=== PATIENT | male | born 1990 | race Caucasian/White ===

== ENCOUNTER 2016-09-28 16:47 | Emergency (ER) | payer OTHER ==
[2016-09-28 16:58] VITALS: BP 159/96; PULSE 106; TEMP 98.8; BMI 31.1
[2016-09-28] MEDS ORDERED: LIDOCAINE HCL 1%, 10 MG/ML (20ML VIAL) ONE (17:49)
[2016-09-28] MEDS ORDERED: OXYCODONE/APAP 5/325MG COMBO TABLET ONE (17:56)
[2016-09-28] MEDS ORDERED: DIPHTH,PERTUSS(ACELL),TET 0.5 ML DISP.SYRIN IM ONE (19:21)
--- NOTE | 2016-09-28 19:28 | PDOC ---
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 Superficial laceration to right thigh, pulling injury to left shoulder. History of rotator cuff surgery to same. Denies any head injury, denies any other complaint. No back pain or neck pain. REVIEW OF SYSTEMS: RESPIRATORY: No cough, wheezing, or hemoptysis. MUSCULOSKELETAL: Pain to left shoulder with range of motion, good range of motion to bilateral hands SKIN : No erythema, no bruising, no deformity. Flap laceration to left palm, linear laceration to right hand, superficial abrasion to right upper thigh NEUROLOGICAL: Denies any numbness or tingling. No neurosensory deficits PHYSICAL EXAM: GENERAL: The patient is awake, alert, and fully oriented, in no acute distress. HEAD: Normal with no signs of trauma. EXTREMITIES: Good range of motion to all 4 extremities, pain with range of motion to left shoulder with abduction, good range of motion to left hand with flap laceration measuring approximately 5 cm in length, no foreign body no ligament or tendon involvement. There is a 4 cm laceration to palm of right hand good range of motion to hand and fingers, good cap refill, no foreign body. Superficial abrasion measuring approximately 2 cm in length to right upper thigh. SKIN: Warm, Dry, normal turgor, no erythema, no edema no bruising. 09/28/16 19:56 Past History - Past Medical History Allergies/Adverse Reactions: Allergies Allergy/AdvReac Type Severity Reaction Status Date / Time No Known Allergies Allergy Verified 09/28/16 16:58 Home Medications: Ambulatory Orders Cephalexin [Keflex] 500 mg PO TID #15 capsule 09/28/16 Oxycodone HCl/Acetaminophen [Percocet 5-325 mg Tablet] 1 - 2 tab PO Q4H #36 tablet MDD 10 09/28/16 Other medical history: NONE - Immunization History Immunization Up to Date: Yes - Psycho/Social/Smoking Cessation Hx Anxiety: No Suicidal Ideation: No Smoking History: Never smoked Hx Alcohol Use: Yes (SOCIAL) Drug/Substance Use Hx: No Substance Use Type: None *Physical Exam - Vital Signs Last Vital Signs Temp Pulse Resp BP Pulse Ox 98.8 F 106 H 20 159/96 97 09/28/16 16:54 09/28/16 16:54 09/28/16 16:54 09/28/16 16:54 09/28/16 16:54 Procedures - Laceration/Wound Repair Hand Wound Length: 12.6 to 20 cm (combined) Wound's Depth, Shape: linear, flap Irrigated w/ Saline: Yes Betadine Prep: Yes Anesthesia: 1% Lidocaine Amount of Anesthetic (ccs): 15 Wound Debrided: minimal Wound Repaired With: Sutures Suture Size/Type: 5:0 Layer Closure: No Deep Layer Suture Size/Type: 5:0 Progress: 09/28/16 19:28 2 separate lacerations, flap laceration to left hand, linear laceration to right hand. Left hand required 12 single interrupted sutures with 5.0 P 13 Right hand with 10 interrupted sutures 5.0 P 13. Bilateral hands prepped sterilely with normal saline and Betadine, washed with high pressure irrigation. Anesthetized using 15 mL's of 1% lidocaine. Suturing performed under sterile technique. Xeroform and bacitracin dressings applied to bilateral hands. Tetanus given. X-ray of left hand to rule out foreign body and x-ray of left shoulder ordered ED Treatment Course - RADIOLOGY Radiology Studies Ordered: Category Date Time Status HAND- LEFT [RAD] Stat Radiology 09/28/16 19:20 Ordered SHOULDER-LEFT [RAD] Stat Radiology 09/28/16 19:20 Ordered Medical Decision Making - Medical Decision Making 09/28/16 19:31 A/P: See procedure note Tetanus ordered X-ray to left shoulder and left hand Percocet One tablet by mouth Awaiting x-ray reading 09/28/16 19:57 Second Percocet ordered I am signing this patient out to my colleague: [MARIN Brandt] In brief, this patient is being seen in the ED for a chief complaint of: [ Bilateral hand lacerations, right thigh laceration and left shoulder injury] I have completed the initial assessment interview note and have ordered: [X-rays , Percocet] Pending results are: [X-rays] Plan for disposition is as follows: [Pending] *DC/Admit/Observation/Transfer Diagnosis at time of Disposition: Laceration of hand, right Laceration of hand, left Qualifiers: Encounter type: initial encounter Foreign body presence: without foreign body Qualified Code(s): S61.412A - Laceration without foreign body of left hand, initial encounter Leg laceration Qualifiers: Encounter type: initial encounter Laterality: right Qualified Code(s): S81.811A - Laceration without foreign body, right lower leg, initial encounter Shoulder injury Qualifiers: Encounter type: initial encounter Laterality: left Qualified Code(s): S49.92XA - Unspecified injury of left shoulder and upper arm, initial encounter - Discharge Dispostion Disposition: HOME Condition at time of disposition: Good Admit: No - Prescriptions Prescriptions: Cephalexin [Keflex] 500 mg PO TID #15 capsule Oxycodone HCl/Acetaminophen [Percocet 5-325 mg Tablet] 1 - 2 tab PO Q4H #36 tablet MDD 10 - Patient Instructions Printed Discharge Instructions: DI for Laceration Repair Additional Instructions: You have received sutures to bilateral hands Keep area clean dry and intact Keep dressing on until tomorrow If any increased bleeding through the dressing return immediately to emergency department Keep area clean dry and intact bacitracin x3 days, then let it dry out Please return in 10 days for suture removal. 10/09/16 Please return immediately to emergency department with any increased redness, swelling, signs of infection Must return after sutures are removed to occupational medicine for clearance to return to work
== END 2016-09-28 20:55 | disposition home or self-care (01) ==
LOC: JERFT 16:47
PROC: 3E0234Z Introduction of Serum, Toxoid and Vaccine into Muscle, Percutaneous Approach (ICD-10-PCS; principal; 2016-09-28)
PROC: 0JQK0ZZ Repair Left Hand Subcutaneous Tissue and Fascia, Open Approach (ICD-10-PCS; 2016-09-28)
PROC: 0JQJ0ZZ Repair Right Hand Subcutaneous Tissue and Fascia, Open Approach (ICD-10-PCS; 2016-09-28)
DX: S61.411A Laceration without foreign body of right hand, initial encounter (principal); S61.412A Laceration without foreign body of left hand, initial encounter; S81.811A Laceration without foreign body, right lower leg, initial encounter; S49.82XA Other specified injuries of left shoulder and upper arm, initial encounter; Y35.491A Legal intervention involving other sharp objects, law enforcement official injured, initial encounter; Y93.39 Activity, other involving climbing, rappelling and jumping off; Y92.89 Other specified places as the place of occurrence of the external cause; Y99.0 Civilian activity done for income or pay
CPT/HCPCS: 73030-TC-LT; 73130-TC-LT; 90715; 99281-25

== ENCOUNTER 2016-10-09 11:47 | Emergency (ER) | payer OTHER ==
[2016-10-09 12:05] VITALS: BP 145/68; PULSE 74; TEMP 98.2; BMI 31.1
--- NOTE | 2016-10-09 12:45 | PDOC ---
Suture Removal/Wound Check HPI - History of Present Illness Chief Complaint: Suture/Staple Removal(Here) Stated Complaint: STAPLE/SUTURE REMOVAL Time Seen by Provider: 10/09/16 12:08 History Source: Yes: Patient Exam Limitations: Yes: No Limitations Treated at: [facility] Date of Last ED visit: 09/28/16 - Previous ED Treatment Type of procedure performed on last visit: Yes: Laceration Repair Tetanus Immunization: Yes: Up to Date Antibiotics Prescribed: Yes (Keflex) - Onset of Previous Treatment Date of Occurence: 09/28/16 Past History - Past Medical History Allergies/Adverse Reactions: Allergies No Known Allergies Allergy (Verified 10/09/16 12:04) Home Medications: Ambulatory Orders Cephalexin [Keflex] 500 mg PO TID #15 capsule 09/28/16 Oxycodone HCl/Acetaminophen [Percocet 5-325 mg Tablet] 1 - 2 tab PO Q4H #36 tablet MDD 10 09/28/16 General: Yes: no pertinent history Surgical History: Yes: No Surgical History Psych History: Yes: No Pertinent Psych Hx. - Immunization History Immunizations Up to Date: Yes Tetanus Status: Less than 5 years - Social History Smoking Status: Never smoked Suture Removal/Wound Check PE - Physical Exam Laceration/Wound Check Symptoms: reports: Pain Comments: 10/09/16 12:46 Left palm, mild wound dehiscence, but superficial. Wound otherwise healed well. There is no erythema edema or secondary signs of infection. Current Severity Level: None Maximum Severity Level: None Pain Localization: None *Review of Systems - Review of Systems Constitutional: No: Symptoms Reported Respiratory: No: Symptoms reported Integumentary: Yes: Other (Pain to the left hand) Neurological: No: Symptoms reported, Paresthesia, Tingling, Tremors Medical Decision Making - Medical Decision Making 10/09/16 12:47 A/P : 23 sutures were removed without difficulty, there is mild wound dehiscence to the left hand which is superficial there is no drainage. No secondary signs of infection. Patient with good range of motion Dermabond placed superficially just for protective reasons to the right hand. Patient to follow-up with occupational medicine for return to work. *DC/Admit/Observation/Transfer Diagnosis at time of Disposition: Visit for suture removal - Discharge Dispostion Disposition: HOME Condition at time of disposition: Good Admit: No - Patient Instructions Printed Discharge Instructions: DI for Suture Removal Additional Instructions: Keep area clean for the next day, then perform active ROM to increase mobility to hand. All up with occupational medicine for return to work, follow-up with orthopedics for shoulder pain.
== END 2016-10-09 12:52 | disposition home or self-care (01) ==
LOC: JERFT 11:47
DX: Z48.02 Encounter for removal of sutures (principal)
CPT/HCPCS: 99281-25

== ENCOUNTER 2022-01-22 14:36 | Emergency (ER) | payer OTHER ==
[2022-01-22 15:02] VITALS: BP 122/78; PULSE 75; RESP 16; TEMP 98.3; BMI 31.9
== END 2022-01-22 15:28 | disposition home or self-care (01) ==
LOC: FER 14:36
DX: M54.50 Low back pain, unspecified (principal)
CPT/HCPCS: 99281-25

== ENCOUNTER 2024-09-04 07:41 | Emergency (ER) | payer OTHER, BC ==
[2024-09-04 08:06] VITALS: BP 131/72; PULSE 76; RESP 20; TEMP 98.2; BMI 31.9
[2024-09-04] MEDS: HIV POST EXPOSURE PROPHYLAXIS KIT PO ONE (08:42)
[2024-09-04 12:16] LABS: HCV DIAGNOSTIC IN-HOUSE W/RFLX NON-REACTIVE (NONREACTIVE)
[2024-09-04 12:17] LABS: HIV INTERPRETATION NEGATIVE (NEGATIVE)
== END 2024-09-04 08:47 | disposition home or self-care (01) ==
LOC: FER 07:41
DX: Z77.21 Contact with and (suspected) exposure to potentially hazardous body fluids (principal)
CPT/HCPCS: 36415; 86803; 87389; 99283-25